=== PATIENT | male | born 1980 | race Caucasian/White ===

== ENCOUNTER 2018-01-24 00:53 | Emergency (ER) | payer SELFPAY ==
[~2018-01-24] VITALS: Ht 167.6 cm; Wt 74.8 kg
[2018-01-24 01:18] VITALS: BP 137/76
[2018-01-24] MEDS ORDERED: IVERMECTIN 3 MG TABLET PO ONE (02:00)
== END 2018-01-24 02:06 | disposition home or self-care (01) ==
LOC: ER 00:55
DX: B86 Scabies (principal); L03.113 Cellulitis of right upper limb; F43.10 Post-traumatic stress disorder, unspecified; Z59.0 Homelessness
CPT/HCPCS: A4606; Z7610

== ENCOUNTER 2022-05-08 15:51 | Emergency (ER) | payer OTHER ==
[~2022-05-08] VITALS: Ht 170.2 cm; Wt 113.4 kg
[2022-05-08 15:57] VITALS: BP 143/101
--- NOTE | 2022-05-08 16:10 | NUR ---
DR MUIR SPEAKING W/ PT.
== END 2022-05-08 16:21 | disposition home or self-care (01) ==
LOC: ER 16:08
DX: K21.9 Gastro-esophageal reflux disease without esophagitis (principal); F41.9 Anxiety disorder, unspecified; F32.A Depression, unspecified; F17.200 Nicotine dependence, unspecified, uncomplicated

== ENCOUNTER 2022-07-22 15:40 | Emergency (ER) | payer MEDICAID, OTHER ==
[~2022-07-22] VITALS: Ht 170.2 cm; Wt 90.7 kg
--- NOTE | 2022-07-22 16:00 | NUR ---
BIBS C/O LOWER BACK PAIN X 7 DAYS, NO RECENT TRAUMA
[2022-07-22] MEDS ORDERED: ONDANSETRON 4 MG TAB.RAPDIS ONE (16:39)
[2022-07-22] MEDS ORDERED: KETOROLAC TROMETHAMINE INJ 30 MG/ML VIAL ONE (16:39)
[2022-07-22 16:42] LABS: BILIRUBIN,URINE NEGATIVE (NEGATIVE); COLOR,URINE YELLOW (YELLOW); LEUKOCYTE ESTERASE ,URINE NEGATIVE (NEGATIVE); NITRITE, URINE NEGATIVE (NEGATIVE); PROTEIN,URINE TRACE mg/dl (NEGATIVE); UGLUCOSE NEGATIVE (NEGATIVE); UROBILINOGEN,URINE 0.2 EU/dL (0.2)
[2022-07-22 16:48] LABS: BACTERIA,URINE Rare /HPF (None Seen); SQUAMOUS EPITHELIAL CELL,UR Few /HPF (None Seen); WBC,URINE 0-2 /HPF (0-3)
[2022-07-22] MEDS ORDERED: ONDANSETRON 4 MG TAB.RAPDIS PO ONE (17:00)
[2022-07-22] MEDS ORDERED: KETOROLAC TROMETHAMINE INJ 60 MG/2 ML VIAL IM ONE (17:00)
[2022-07-22] MEDS ORDERED: IBUP-1957 PO (19:43)
[2022-07-22] MEDS ORDERED: TAMS-12 PO (19:44)
--- NOTE | 2022-07-22 19:53 | NUR ---
Patient discharged to home in stable condition. Written and verbal after care instructions given. Patient verbalizes understanding of instruction.
[2022-07-22 19:56] VITALS: BP 144/80
== END 2022-07-22 19:56 | disposition home or self-care (01) ==
LOC: ER 15:41
DX: N20.0 Calculus of kidney (principal); R10.9 Unspecified abdominal pain; Z87.442 Personal history of urinary calculi; Z79.899 Other long term (current) drug therapy
CPT/HCPCS: 99284; 74176; 96372; 81001; J1885; Q0162

== ENCOUNTER 2023-11-04 08:49 | Emergency (ER) | payer OTHER, MEDICAID ==
[~2023-11-04] VITALS: Ht 170.2 cm; Wt 106.6 kg
[~2023-11-04 08:49] MED LIST: IBUP-1957 PO; TAMS-12 PO
[2023-11-04 08:59] VITALS: BP 129/81; TEMP 98.2
[2023-11-04] MEDS ORDERED: CYCL5TAB PO (09:09)
[2023-11-04] MEDS ORDERED: CYCLOBENZAPRINE 10 MG TABLET ONE (09:11)
[2023-11-04] MEDS ORDERED: IBUPROFEN 600 MG TABLET ONE ×2 (09:11→09:15)
[2023-11-04] MEDS: CYCLOBENZAPRINE 10 MG TABLET PO ONE (09:11)
[2023-11-04] MEDS: IBUPROFEN 600 MG TABLET PO ONE (09:11)
[2023-11-04 09:16] VITALS: O2SAT 95
== END 2023-11-04 09:20 | disposition home or self-care (01) ==
LOC: ER 08:49
DX: M54.9 Dorsalgia, unspecified (principal); Z79.899 Other long term (current) drug therapy

== ENCOUNTER 2025-05-08 16:09 | Emergency (ER) | payer MEDICAID, OTHER ==
[~2025-05-08] VITALS: Ht 170.2 cm; Wt 99.8 kg
[~2025-05-08 16:09] MED LIST changes: +CYCL5TAB PO
[2025-05-08 16:10] VITALS: BP 122/78; TEMP 98.3
[2025-05-08] MEDS ORDERED: IBUP-1953 PO (17:06)
[2025-05-08] MEDS ORDERED: IBUPROFEN 600 MG TABLET ONE (17:12)
[2025-05-08] MEDS: IBUPROFEN 600 MG TABLET PO ONE (17:14)
[2025-05-08 17:19] VITALS: O2SAT 99
== END 2025-05-08 17:20 | disposition home or self-care (01) ==
LOC: ER 16:15
DX: S93.492A Sprain of other ligament of left ankle, initial encounter (principal); Z79.1 Long term (current) use of non-steroidal anti-inflammatories (NSAID); X50.1XXA Overexertion from prolonged static or awkward postures, initial encounter; Y93.01 Activity, walking, marching and hiking; Y93.89 Activity, other specified; Y92.89 Other specified places as the place of occurrence of the external cause; Y99.8 Other external cause status
CPT/HCPCS: 73610-TC

== ENCOUNTER 2025-06-06 14:47 | Emergency (ER) | payer MEDICAID ==
[~2025-06-06] VITALS: Ht 170.2 cm; Wt 102.1 kg
[~2025-06-06 14:47] MED LIST changes: +IBUP-1953 PO
[2025-06-06 15:00] VITALS: BP 124/74; TEMP 98.2; O2SAT 95
[2025-06-06] MEDS ORDERED: IBUP-1955 PO (15:51)
[2025-06-06] MEDS ORDERED: LIDO30AD10 TP (15:51)
[2025-06-06] MEDS ORDERED: KETOROLAC TROMETHAMINE 15 MG/ML VIAL ONE (15:54)
[2025-06-06] MEDS ORDERED: LIDOCAINE 5% (PATCH) 1 EA PATCH TP ONE (15:54)
[2025-06-06] MEDS: LIDOCAINE 5% (PATCH) 1 EA PATCH TP SCH (15:59)
[2025-06-06] MEDS: KETOROLAC TROMETHAMINE 15 MG/ML VIAL IM ONE (15:59)
== END 2025-06-06 16:01 | disposition home or self-care (01) ==
LOC: ER 14:57
DX: M54.50 Low back pain, unspecified (principal); Z79.1 Long term (current) use of non-steroidal anti-inflammatories (NSAID)
CPT/HCPCS: 99283; 96372; J1885